=== PATIENT | male | born 1995 | race Caucasian/White ===

== ENCOUNTER 2025-08-08 21:39 | Observation (INO) ==
[2025-08-08] MEDS: ASPIRIN CHEW 324 MG PO STA (22:00)
[2025-08-08] MEDS: SODIUM CHLORIDE 0.9% 1,000 ML IV STA (22:01)
[2025-08-08 22:20] LABS: Hematocrit (blood only) 42.3 % (42.0-52.0); Hemoglobin 15.2 g/dl (14.0-18.0); Immature Granulocytes # (auto) 0.01 K/uL (0.01-0.20); Immature Granulocytes % (auto) 0.1 %; Mean Corpuscular Hemoglobin 30.8 pg (25.0-34.0); Mean Corpuscular Volume 85.6 fL (80.0-100.0); Platelet Count 237 K/uL (130-400); RDW Standard Deviation 38.4 fL (36.4-46.3); Red Blood Count 4.94 M/uL (4.70-6.10); White Blood Count 7.78 K/ul (4.8-10.8)
[2025-08-08 22:23] LABS: Appearance Urine Clear (Clear); Glucose Urine UA Negative (Negative)
[2025-08-08] MEDS: OPTIRAY 320 125ml IV ONE (22:34)
[2025-08-08 22:38] LABS: Anion Gap 10.0 (3-11); Blood Urea Nitrogen 16.0 mg/dl (6-23); Calcium 9.5 mg/dl (8.6-10.3); Carbon Dioxide 25.0 mmol/L (21-32); Chloride 103.0 mmol/L (98-107); Creatinine Clr Calc Pharmacy 126.4 ml/min; Glucose 90.0 mg/dl (70-99(Fasting)); Lipase 27.0 U/L (11-82); Magnesium 2.0 mg/dl (1.7-2.4); Potassium 3.4 mmol/L (3.5-5.1); Sodium 138.0 mmol/L (136-145)
[2025-08-08 22:49] LABS: Amphetamines+Metham, Urine Pos (Neg); INR 1.0 (0.9-1.1); MDMA (Ecstacy), Urine Neg (Neg); Marijuana, Urine Neg (Neg); Partial Thromboplastin Time 25 Seconds (21-31); Prothrombin Time 10.7 Seconds (9.0-12.0)
--- NOTE | 2025-08-08 22:52 | CT Scan Report ---
Exam(s): CTA CHEST IV Amt: 118ML OPTIRAY 320 EXAM: CT Angiography Chest With Intravenous Contrast CLINICAL HISTORY: Reason for exam: ro pe. TECHNIQUE: Axial computed tomographic angiography images of the chest with intravenous contrast. CTDI is 24.55 mGy and DLP is 878.81 mGy-cm. Automated exposure control was utilized for the study. A dose lowering technique was utilized adhering to the principles of ALARA. MIP reconstructed images were created and reviewed. COMPARISON: No relevant prior studies available. FINDINGS: Pulmonary arteries: No evidence of acute pulmonary embolism. Aorta: No aortic aneurysm or dissection. Lungs: No mass. No consolidation. Pleural space: No significant pleural effusion. No pneumothorax. Heart: No cardiomegaly. No significant pericardial effusion. Bones/joints: No acute fracture. No dislocation. Soft tissues: Unremarkable. Lymph nodes: No enlarged lymph nodes. IMPRESSION: No evidence of acute pulmonary embolism. Electronically signed by: Nacho Saravia M.D. 08/08/25 22:51 PM
[2025-08-08] MEDS: METOPROLOL TARTRATE 1 MG/ML VIAL IV PRN (23:46)
[2025-08-08] MEDS: SODIUM CHLORIDE 0.9% 1,000 ML IV ONE (23:48)
--- NOTE | 2025-08-09 00:01 | History & Physical Report ---
Date of Service August 09, 2025 Assessment & Plan (1) Atrial fibrillation with RVR: Plan Pt is a 30 yo male with nicotine dependence who presents to the hospital for palpitations, found to be in afib. #Atrial fibrillation with RVR - noted on EKG done in the ED - likely lifestyle induced; adderall use + constant nicotine pouch use + high caffeine use + alcohol use - initially on dilt per the ED and then given dose of lopressor with improvement in rates to low 100-110s - no associated chest pain or SOB, trop 3.0 on admission - denies any other drug use - will order echo to assess heart structures - started on dilt drip by ED, will discontinue this and do po dilt VTE: defer on admission, CHADSVASC score of 0 History of Present Illness Chief Complaint: Arrhythmia Primary Care Provider: NO PCP Pt is a 30 yo male with nicotine dependence who presents to the hospital for palpitations, found to be in afib. Pt here today with significant other and his mom. Pt states he was at the tailgate and started to feel palpitations and like his heart was racing. No chest pain or SOB. He did not feel syncopal. Feeling better now with improvement in his heart rates. 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 He states that he takes adderall at least once daily and zyn nicotine pouches he uses 2mg dosing and states he always has one in his mouth during waking hours. Today in particular, he states he woke up and had his adderall around 7am, then had a venti pike around 8am followed by a 12 ounce redbull at 1 pm and another 12 ounce redbull at 3pm. Additionally, he had 3 high noon alcoholic drinks throughout the day and then a shot of liquor shortly before coming to the hospital. His mom in the room is quite concerned and notes family hx of heart disease, most significantly his cousin on maternal side had a massive NJ in his 20s, MGM had NJ in her 40-50ss and maternal GGF had NJ at age 46. Allergies Allergy/AdvReac Type Severity Reaction Status Date / Time No Known Allergies Allergy Unverified 08/09/25 00:55 Home Medications Medication Instructions Recorded Confirmed Type dextroamphetamine-amphetamine 10 10 mg PO .EVERY AFTERNOON 08/09/25 08/09/25 History mg tablet (Adderall) dextroamphetamine-amphetamine ER 30 mg PO .QAM 08/09/25 08/09/25 History 30 mg 24hr capsule,extend release (Adderall XR) Past Med/Surg History Problem List (Updated 08/09/25 @ 02:06 by Giovany Young MD) Atrial fibrillation with RVR (Acute) Social History Smoking Status: Never smoker Review of Systems Review of Systems: Per HPI. Physical Exam Physical Exam: General: Alert and oriented, no acute distress, cooperative HEENT: Normocephalic, moist oral mucosa, Cardio: Regular rate and rhythm, no murmur, Resp: Lungs clear to auscultation b/l, no wheezes or rhonchi, GI: Soft and nontender, nondistended, bowel sounds active Skin: Warm, pink, dry, Results & Data Results & Data Vital Signs (Past 12 Hours) Vital Signs Temp Pulse Resp BP O2 Del Method 08/08/25 23:46 140 H 114/66 08/08/25 22:02 Room Air 08/08/25 21:52 149 H 08/08/25 21:50 36.9 C 149 H 19 154/85 H Room Air Supervising Physician Co-Signing Physician Notes Attending addendum: I have physically seen this patient, have supervised the medical residents activities, and agree with the H&P unless as otherwise noted. Assessment and Plan: The patient is a 30 with a past medical history including yo male nicotine dependence, and ADHD, who presents to the emergency department, with EKG and Troponin 3.0 Monitor indicating A-fib with RVR. Atrial fibrillation with RVR- The patient will be admitted to telemetry for serial cardiac enzymes, serial EKG's, cardiac rhythm monitoring and a 2-D echocardiogram with Dopplers. Potassium 3.4, optimized with oral and IV replacement as noted He was started on Cardizem drip by ED. Was also given normal saline IV 2 L bolus, aspirin 325 mg, and started on normal saline 125 mL/h Was then given Lopressor 5 mg IV with improvement in heart rate from 140s to 11 0s He denies any history of drug use. Urine drug screen is positive for amphetamine/methamphetamine, which is likely his Adderall he takes for ADHD Usage of Adderall, venti pike, and red bull as noted Resident Activity Tracking Resident Involvement: Resident Care Provided Care Provided: Adult Hospital Medicine
--- NOTE | 2025-08-09 00:05 | XRay Report ---
Exam(s): XR CXR 1 VIEW EXAM: XR Chest, 1 View CLINICAL HISTORY: Reason for exam: Chest pain, nonspecific. TECHNIQUE: Frontal view of the chest. COMPARISON: No relevant prior studies available. FINDINGS: Lungs: No consolidation. Pleural space: No significant pleural effusion. No pneumothorax. Heart: No cardiomegaly or pulmonary vascular congestion. Bones/joints: No acute fracture. No dislocation. IMPRESSION: No evidence of acute cardiopulmonary disease. Electronically signed by: Nacho Saravia M.D. 08/09/25 00:05 AM
[2025-08-09] MEDS: SODIUM CHLORIDE 0.9% 1,000 ML IV SCH (00:39)
[2025-08-09] MEDS: POTASSIUM CHLORIDE CRTAB 20 MEQ TABCR PO STA (00:40)
[2025-08-09] MEDS ORDERED: ONDANSETRON INJ 2 MG/ML 2 ML VIAL IV PRN (01:59)
[2025-08-09] MEDS ORDERED: MELATONIN 3 MG TAB PO PRN (01:59)
[2025-08-09] MEDS ORDERED: ACETAMINOPHEN 325 MG TAB PO PRN (01:59)
[2025-08-09] MEDS ORDERED: POLYETHYLENE (MIRALAX) 17 GM PACK PO PRN (01:59)
--- NOTE | 2025-08-09 02:03 | Emergency Department Note ---
History of Present Illness General Chief Complaint: Cardiac Assessment Stated Complaint: AFIB WITH RVR Time Seen by Provider: 08/08/25 21:43 History of Present Illness Provider Complaint: + palpitations and + atrial fibrillation Onset (ago): 1 hour(s) Duration: + Constant Severity: severe Context: + occurred during rest Arrhythmia history: no atrial fibrillation or no on anti-coagulants Associated symptoms: no chest pain, no shortness of breath, no syncope, no near- syncope, no nausea, no vomiting, no anxiety or no cough Treatments prior to arrival: + calcium channel lucio (EMS gave Cardizem 10 mg bolus, 20 mg bolus, 20 mg bolus as well as Ativan 2 mg IV push) HPI narrative: Patient reports she recently traveled here from [place]. 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 Patient does reporting drinking excessive amounts of caffeinated beverages including red bull, caffeinated alcoholic beverages, and took shots of whiskey prior to arrival. Home Medications Medication Instructions Recorded Confirmed Type dextroamphetamine-amphetamine 10 10 mg PO .EVERY AFTERNOON 08/09/25 08/09/25 History mg tablet (Adderall) dextroamphetamine-amphetamine ER 30 mg PO .QAM 08/09/25 08/09/25 History 30 mg 24hr capsule,extend release (Adderall XR) Allergies Allergy/AdvReac Type Severity Reaction Status Date / Time No Known Allergies Allergy Unverified 08/09/25 00:55 Past Med/Surg History Problem List (Updated 08/09/25 @ 02:06 by Giovany Young MD) Atrial fibrillation with RVR (Acute) Social History Smoking Status: Never smoker Physical Exam 2 Vital Signs: Vital Signs - 24 hr 08/08/25 21:50 08/08/25 21:52 08/08/25 22:02 Temperature 36.9 C Temperature Source Oral Pulse Rate 149 H 149 H Pulse Rate [Right Finger] Pulse Rhythm [Righ t Finger] Pulse Strength [Ri ght Finger] Respiratory Rate 19 Respiratory Effort / Characteristics Respiratory Depth Respiratory Patter n Blood Pressure 154/85 H Blood Pressure [Le ft Arm] Blood Pressure Mercy n 108 Blood Pressure Mercy n [Left Arm] Blood Pressure Pos ition [Left Arm] Pulse Oximetry Oxygen Delivery Me thod Room Air Room Air Sepsis Recent Feve r Within 48 Hours No Sepsis New/Unexpla ined Change in Men genoveva Status No Sepsis Action Take n by Nursing No Action Required 08/08/25 23:37 08/08/25 23:37 08/08/25 23:46 Temperature Temperature Source Pulse Rate 140 H Pulse Rate [Right Finger] 107 H Pulse Rhythm [Righ t Finger] Regular Pulse Strength [Ri ght Finger] Normal Respiratory Rate 22 Respiratory Effort / Characteristics Non-Labored Respiratory Depth Normal Respiratory Patter n Regular Blood Pressure 114/66 Blood Pressure [Le ft Arm] 116/76 Blood Pressure Mercy n Blood Pressure Mercy n [Left Arm] 89 Blood Pressure Pos ition [Left Arm] Lying Pulse Oximetry 96 Oxygen Delivery Me thod Room Air Room Air Sepsis Recent Feve r Within 48 Hours Sepsis New/Unexpla ined Change in Men genoveva Status Sepsis Action Take n by Nursing 08/09/25 00:35 Temperature Temperature Source Pulse Rate 104 H Pulse Rate [Right Finger] Pulse Rhythm [Righ t Finger] Pulse Strength [Ri ght Finger] Respiratory Rate Respiratory Effort / Characteristics Respiratory Depth Respiratory Patter n Blood Pressure 107/58 L Blood Pressure [Le ft Arm] Blood Pressure Mercy n Blood Pressure Mercy n [Left Arm] Blood Pressure Pos ition [Left Arm] Pulse Oximetry Oxygen Delivery Me thod Sepsis Recent Feve r Within 48 Hours Sepsis New/Unexpla ined Change in Men genoveva Status Sepsis Action Take n by Nursing Physical Exam: Physical Exam GENERAL: oriented to person, place, and time. appears well-developed and well- nourished. HENT: Exam performed. - Head: Normocephalic and atraumatic. EYES: Conjunctivae and EOM are normal. Right eye exhibits no discharge. Left eye exhibits no discharge. No scleral icterus. NECK: Normal range of motion. Neck supple. No JVD present. CV: Tachycardic rate, irregular rhythm, normal heart sounds and intact distal pulses. There is no peripheral edema. Palpable radial pulses bue. PULM/CHEST: Effort normal and breath sounds normal. No respiratory distress. No stridor. no wheezes. no rales. ABD: The abdomen is soft. There is no tenderness. NEURO: Motor and sensation grossly intact. SKIN: Skin is warm and dry. He is not diaphoretic. PSYCH: normal mood and affect. Behavior is normal. Judgment and thought content normal. Course Course 2142: The patient was evaluated in room C3. A complete history and physical exam was performed Cardiac monitoring: An order was placed for continuous cardiac monitoring. The monitor shows a rate of 130-150 with atrial fibrilation rhythm interpreted by me Patient will be placed on Cardizem drip. Will check urine drug screen before initiating treatment with beta-blockers to make sure the patient is positive for any illicit substances specifically cocaine. 2350: Patient remained tachycardic despite being on maximum Cardizem drip. Patient's labs and imaging were unremarkable including negative UDS, CTA chest, and high-sensitivity troponin. Patient not reporting a chest pain or difficulty breathing. Patient was given metoprolol 5 mg IV push which improved the patient's ventricular rate. Patient will be admitted for A-fib RVR. Patient has a [id number] score of 0. Aspirin given to the patient. JOHNNY?DS?-VASc Score for Atrial Fibrillation Stroke Risk from [email or web address] on 08/08/2025 All calculations should be rechecked by clinician prior to use RESULT SUMMARY: 0 points Stroke risk was 0.2% per year in >90,000 patients (the [place] Atrial Fibrillation Cohort Study) and 0.3% risk of stroke/TIA/systemic embolism. INPUTS: Age > 0 = <65 Sex > 0 = Male CHF history > 0 = No Hypertension history > 0 = No Stroke/TIA/thromboembolism history > 0 = No Vascular disease history (prior [place], peripheral artery disease, or aortic plaque) > 0 = No Diabetes history > 0 = No Administered Medications Diltiazem HCl 125 mg/ Dextrose 125 mls @ 10 mls/hr IV .[id number] [facility]; Protocol Stop: 09/07/25 21:59 Last Titration: 08/09/25 00:36 Dose: 10 mg/hr, 10 mls/hr Documented By: PAG Co-signed By: LYRIC Titration: 08/08/25 23:24 Dose: 15 mg/hr, 15 mls/hr Documented By: ADI Co-signed By: SOLOMON Titration: 08/08/25 23:08 Dose: 10 mg/hr, 10 mls/hr Documented By: NAYAN Co-signed By: KAELYN Titration: 08/08/25 22:48 Dose: 7.5 mg/hr, 7.5 mls/hr Documented By: NAYAN Co-signed By: KAELYN Admin: 08/08/25 22:09 Dose: 5 mg/hr, 5 mls/hr Documented By: NAYAN Co-signed By: WADE Sodium Chloride (Nss) 1,000 mls @ 125 mls/hr IV .Q8H THAI Stop: 08/11/25 23:44 Last Admin: 08/09/25 00:39 Dose: 125 mls/hr Documented By: BEV Metoprolol Tartrate (Metoprolol Tartrate 1 Mg/Ml Vial) 5 mg IV Q5M PRN PRN Reason: Tachycardia Stop: 09/07/25 23:35 Last Admin: 08/08/25 23:46 Dose: 5 mg Documented By: BEV Discontinued Medications Aspirin (Aspirin Chew 324 Mg) 324 mg PO NOW STA Stop: 08/08/25 21:51 Last Admin: 08/08/25 22:00 Dose: 324 mg Documented By: KAELYN Sodium Chloride (Nss) 1,000 mls @ 999 mls/hr IV .Q1H1M STA Stop: 08/08/25 22:50 Last Infusion: 08/08/25 23:25 Dose: Infused Documented By: Admin: 08/08/25 22:11 Dose: 999 mls/hr Documented By: Infusion: 08/08/25 22:11 Dose: Infused Documented By: Admin: 08/08/25 22:01 Dose: 999 mls/hr Documented By: KAELYN Sodium Chloride (Nss) 1,000 mls @ 999 mls/hr IV .Q1H1M ONE Stop: 08/08/25 22:50 Last Admin: 08/08/25 23:48 Dose: Not Given Documented By: BEV Ioversol (Optiray 320 125ml) 118 ml IV ONCE ONE Stop: 08/08/25 22:35 Last Admin: 08/08/25 22:34 Dose: 118 ml Documented By: YANICK Potassium Chloride (Potassium Chloride Crtab 20 Meq Tabcr) 60 meq PO NOW STA Stop: 08/08/25 23:37 Last Admin: 08/09/25 00:40 Dose: 60 meq Documented By: BEV Medical Decision Making Laboratory Data Attestation: I reviewed the patient's lab results. 08/08/25 22:01 08/08/25 22:01 Lab Results 08/08/25 08/08/25 Range/Units 22:01 22:11 WBC 7.78 (4.8-10.8) K/ul RBC 4.94 (4.70-6.10) M/uL Hgb 15.2 (14.0-18.0) g/dl POC Hgb 15.0 (14.0-18.0) g/dl Hct 42.3 (42.0-52.0) % POC Hct 44 (42-52) % MCV 85.6 (80.0-100.0) fL MCH 30.8 (25.0-34.0) pg MCHC 35.9 (32.0-36.0) g/dL RDW Std Deviation 38.4 (36.4-46.3) fL RDW Coeff of Susy 12.4 (11.5-14.5) % Plt Count 237 (130-400) K/uL MPV 10.1 (9.4-12.4) fL Immature Gran % (Auto) 0.1 % Neut % (Auto) 63.9 % Lymph % (Auto) 26.5 % J[place]uld % (Auto) 6.4 % Eos % (Auto) 2.1 % Baso % (Auto) 1.0 % Neut # (Auto) 4.97 (1.40-6.50) K/uL Lymph # (Auto) 2.06 (1.20-3.40) K/uL J[place] # (Auto) 0.50 (0.11-0.59) K/uL Eos # (Auto) 0.16 (0.00-0.50) K/uL Baso # (Auto) 0.08 (0.00-0.20) K/uL Immature Gran # (Auto) 0.01 (0.01-0.20) K/uL PT 10.7 (9.0-12.0) Seconds INR 1.0 (0.9-1.1) APTT 25 (21-31) Seconds PTT Ratio 0.9 POC Sodium 141 (135-144) mmol/L Sodium 138 (136-145) mmol/L POC Potassium 3.4 (3.3-5.0) mmol/L Potassium 3.4 L (3.5-5.1) mmol/L POC Chloride 105 (101-112) mmol/L Chloride 103 (98-107) mmol/L Carbon Dioxide 25 (21-32) mmol/L POC Total CO2 24 (24-31) mmol/L Anion Gap 10 (3-11) POC Anion Gap 16.0 (16-25) mmol/L POC BUN 17 (7-18) mg/dl BUN 16 (6-23) mg/dl Creatinine 1.04 (0.6-1.4) mg/dl POC Creatinine 1.1 (0.6-1.3) mg/dl Est Cr Clr Drug Dosing 126.4 ml/min eGFR 98.45 BUN/Creatinine Ratio 15.4 (10-20) Glucose 90 (70-99(Fasting)) mg/dl POC Glucose (other) 93 (70-99) mg/dl Calcium 9.5 (8.6-10.3) mg/dl POC Ioniz Calcium Reinier 1.19 (1.12-1.32) mmol/l Magnesium 2.0 (1.7-2.4) mg/dl Troponin I High Sens 3.0 (0-20) pg/ml Lipase 27 (11-82) U/L Urine Color Yellow Urine Appearance Clear (Clear) Urine pH 6.0 (4.5-7.5) Ur Specific [place] 1.013 (1.000-1.030) Urine Protein Negative (Negative) Urine Glucose (UA) Negative (Negative) Urine Ketones Negative (Negative) Urine Blood Negative (Negative) Urine Nitrite Negative (Negative) Urine Bilirubin Negative (Negative) Urine Urobilinogen Negative (Negative) Ur Leukocyte Esterase Negative (Negative) Urine Comment Urine Opiates Screen Neg (Neg) Ur Methadone, Qual Neg (Neg) Urine Fentanyl Screen Neg (Neg) Urine Barbiturates Neg (Neg) Ur Phencyclidine (PCP) Neg (Neg) U Amphetamin/Meth Scrn Pos H (Neg) MDMA (Ecstasy) Screen Neg (Neg) U Benzodiazepines Scrn Neg (Neg) Ur Cocaine Metabolite Neg (Neg) U Marijuana (THC) Screen Neg (Neg) Imaging Data Attestation: I personally reviewed and interpreted this imaging study as follows: My Impression: Chest x-ray negative. Airway clear. No pneumothorax. No consolidation. No cardiomegaly or cephalization.. No free air under the diaphragm. No fractures of the skeletal structures. Radiologist's Impression: Chest X-Ray 08/08/25 21:50 Exam(s): XR CXR 1 VIEW EXAM: XR Chest, 1 View CLINICAL HISTORY: Reason for exam: Chest pain, nonspecific. TECHNIQUE: Frontal view of the chest. COMPARISON: No relevant prior studies available. FINDINGS: Lungs: No consolidation. Pleural space: No significant pleural effusion. No pneumothorax. Heart: No cardiomegaly or pulmonary vascular congestion. Bones/joints: No acute fracture. No dislocation. IMPRESSION: No evidence of acute cardiopulmonary disease. Electronically signed by: Nacho Saravia M.D. 08/09/25 00:05 AM Chest CTA 08/08/25 22:00 Exam(s): CTA CHEST IV Amt: 118ML OPTIRAY 320 EXAM: CT Angiography Chest With Intravenous Contrast CLINICAL HISTORY: Reason for exam: ro pe. TECHNIQUE: Axial computed tomographic angiography images of the chest with intravenous contrast. CTDI is 24.55 mGy and DLP is 878.81 mGy-cm. Automated exposure control was utilized for the study. A dose lowering technique was utilized adhering to the principles of ALARA. MIP reconstructed images were created and reviewed. COMPARISON: No relevant prior studies available. FINDINGS: Pulmonary arteries: No evidence of acute pulmonary embolism. Aorta: No aortic aneurysm or dissection. Lungs: No mass. No consolidation. Pleural space: No significant pleural effusion. No pneumothorax. Heart: No cardiomegaly. No significant pericardial effusion. Bones/joints: No acute fracture. No dislocation. Soft tissues: Unremarkable. Lymph nodes: No enlarged lymph nodes. IMPRESSION: No evidence of acute pulmonary embolism. Electronically signed by: Nacho Saravia M.D. 08/08/25 22:51 PM ECG Data Attestation: I personally reviewed and interpreted this ECG as follows: Additional Comments: EKG #1 at 2147: Atrial fibrillation with a rate of 134. QRS [address] or ST depression EKG #2 at 2346 on Cardizem drip status post metoprolol 5 mg IV push: Atrial fibrillation with a rate of 110. QRS and QTc intervals within normal limits. No ST elevation or ST depression MDM Narrative 2143: The patient was evaluated in room C3. A complete history and physical exam was performed Cardiac monitoring: An order was placed for continuous cardiac monitoring. The monitor shows a rate of 130-150 with atrial fibrilation rhythm interpreted by me Patient will be placed on Cardizem drip. Will check urine drug screen before initiating treatment with beta-blockers to make sure the patient is positive for any illicit substances specifically cocaine. 2350: Patient remained tachycardic despite being on maximum Cardizem drip. Patient's labs and imaging were unremarkable including negative UDS, CTA chest, and high-sensitivity troponin. Patient not reporting a chest pain or difficulty breathing. Patient was given metoprolol 5 mg IV push which improved the patient's ventricular rate. Patient will be admitted for A-fib RVR. Patient has a [id number] score of 0. Aspirin given to the patient. JOHNNY?DS?-VASc Score for Atrial Fibrillation Stroke Risk from [email or web address] on 08/08/2025 All calculations should be rechecked by clinician prior to use RESULT SUMMARY: 0 points Stroke risk was 0.2% per year in >90,000 patients (the [place] Atrial Fibrillation Cohort Study) and 0.3% risk of stroke/TIA/systemic embolism. INPUTS: Age > 0 = <65 Sex > 0 = Male CHF history > 0 = No Hypertension history > 0 = No Stroke/TIA/thromboembolism history > 0 = No Vascular disease history (prior [place], peripheral artery disease, or aortic plaque) > 0 = No Diabetes history > 0 = No Impression & Plan Atrial fibrillation with RVR Critical Care Time Critical Care Time: Yes Discharge Plan Visit Data Chief Complaint: Cardiac Assessment Stated Complaint: AFIB WITH RVR ED Provider: Giovany Young Discharge Problem: Atrial fibrillation with RVR Patient Disposition: Admitted As Inpatient Condition: Serious Discharge Instructions Interventions: ED Discharge Assessment Last Done: 08/09/25 01:59
[2025-08-09 03:17] LABS: Alanine Aminotransferase 12.0 U/L (7-52); Albumin Globulin Ratio 1.5 (0.9-2); Albumin Level 3.7 gm/dl (3.4-5.0); Alkaline Phosphatase 40.0 U/L (34-104); Anion Gap 4.0 (3-11); Bilirubin,Total 0.3 mg/dl (0.2-1.0); Blood Urea Nitrogen 17.0 mg/dl (6-23); Calcium 8.2 mg/dl (8.6-10.3); Carbon Dioxide 25.0 mmol/L (21-32); Chloride 110.0 mmol/L (98-107); Creatinine Clr Calc Pharmacy 170.7 ml/min; Globulin 2.4 gm/dl (2.5-4.0); Glucose 94.0 mg/dl (70-99(Fasting)); Magnesium 1.9 mg/dl (1.7-2.4); Potassium 4.2 mmol/L (3.5-5.1); Sodium 139.0 mmol/L (136-145); Total Protein 6.1 gm/dl (6.0-8.3)
[2025-08-09 03:18] LABS: Hematocrit (blood only) 33.7 % (42.0-52.0); Hemoglobin 11.7 g/dl (14.0-18.0); Immature Granulocytes # (auto) 0.04 K/uL (0.01-0.20); Immature Granulocytes % (auto) 0.5 %; Mean Corpuscular Hemoglobin 29.9 pg (25.0-34.0); Mean Corpuscular Volume 86.2 fL (80.0-100.0); Platelet Count 185 K/uL (130-400); RDW Standard Deviation 38.8 fL (36.4-46.3); Red Blood Count 3.91 M/uL (4.70-6.10); White Blood Count 8.02 K/ul (4.8-10.8)
[2025-08-09] MEDS: LACTATED RINGER'S 1,000 ML IV SCH (03:23)
--- NOTE | 2025-08-09 05:51 | Billing Data ---
Date of Service August 09, 2025 Coding Level of Care Code 98774 INT INP/OBS CARE
[2025-08-09] MEDS: STAT IV Infusion **Titration per Protocol STA (06:37)
--- NOTE | 2025-08-09 06:38 | Electrocardiogram Report ---
Test Reason : Blood Pressure : */* mmHG Vent. Rate : 134 BPM Atrial Rate : * BPM P-R Int : * ms QRS Dur : 98 ms QT Int : 288 ms P-R-T Axes : * 87 -50 degrees QTcB Int : 430 ms Atrial fibrillation with rapid ventricular response Abnormal ECG No previous ECGs available Confirmed by Frankie Caldera ([id number]) on 08/09/2025 6:37:31 AM Referred By: REFERRED SELF Confirmed By: Frankie Caldera
--- NOTE | 2025-08-09 10:11 | Discharge Summary ---
Discharge Summary Date of Service August 09, 2025 Principal Dx & Hospital Course #1 = Principal Diagnosis (1) Atrial fibrillation with RVR: Who is seen for an episode of A-fib, likely provoked by combination of Adderall, nicotine, alcohol, and caffeine. He received metoprolol and diltiazem along with potassium repletion overnight. He converted to normal sinus rhythm. A transthoracic echocardiogram was completed however results of this were pending cardiology review at time of discharge. His high sensitivity troponin was not elevated x 2. There is no suggestion of ischemic disease. As his episode was likely provoked from multiple substances and a very high nicotine/caffeine chronic use with superimposed alcohol use during a sports game. Gradual tapering of his nicotine and caffeine was recommended, he will follow-up with his PCP for pharmacologic assisted management of nicotine dependence. [id number] was 0, his episode was provoked, and he had converted at time of discharge. Anticoagulation was not recommended. A-fib monitoring via a Apple watch was discussed extensively to which she is agreeable and will present for reevaluation should his A-fib recur, if he is able to make lifestyle management as above suspect this is unlikely in the near future. He felt clinically well and was hemodynamically stable at time of discharge. Plan Family Doc: Dr. Luis Miguel Hodge, [place] Admission HPI Per Admitting Provider Pt is a 30 yo male with nicotine dependence who presents to the hospital for p alpitations, found to be in afib. Pt here today with significant other and his mom. Pt states he was at the tailgate and started to feel palpitations and like his heart was racing. No chest pain or SOB. He did not feel syncopal. Feeling better now with improvement in his heart rates. 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 He states that he takes adderall at least once daily and zyn nicotine pouches he uses 2mg dosing and states he always has one in his mouth during waking hours. Today in particular, he states he woke up and had his adderall around 7am, then had a venti pike around 8am followed by a 12 ounce redbull at 1 pm and another 12 ounce redbull at 3pm. Additionally, he had 3 high noon alcoholic drinks throughout the day and then a shot of liquor shortly before coming to the hospital. His mom in the room is quite concerned and notes family hx of heart disease, most significantly his cousin on maternal side had a massive WV in his 20s, MGM had WV in her 40-50ss and maternal GGF had WV at age 46. Discharge Exam General: A&Ox3. NAD. Cooperative. HEENT: Atraumatic, normocephalic. Vision and hearing grossly intact Pulm: Symmetrical chest rise. No increased work of breathing. No respiratory distress. Cardiac: RRR Discharge Plan Discharge Items Patient Disposition: Home - Self-Care Reason For Visit: ARRHYTHMIA Discharge Diagnosis: Provoked atrial fibrillation Condition on Discharge: Good Activity: Resume your previous activity Non-emergency contact: Primary Care Provider Call non-emergency contact if: you have any medication questions, your symptoms worsen, your pain is not controlled and your pain is worsening Follow-up/Referrals: PCP,NO [Primary Care Provider] - Diet: Regular Addtl Attending Provider Instructions: You are seen in the hospital for an abnormal heart rhythm called atrial fibrillation. You received several doses of metoprolol, a heart rate lowering medicine, and IV doses of a medicine called diltiazem, another heart rate lowering medicine, during admission. The morning of 08/09/2025 you switched back to a normal heart rhythm. You had an ultrasound of your heart performed to check function, this was not available at time of discharge and was pending a final read by the fusing machine feeder. You should receive a call if this is abnormal however please ensure with your PCP that the final results of this were forwarded and reviewed at a follow-up appointment. Please call your primary care physician for follow-up appointment within the next 2 to 3 weeks Atrial fibrillation can cause an increased risk of strokes. Your [id number] score was 0, and anticoagulation to prevent strokes was not recommended at time of admission. Additionally A-fib occurring in younger patients is usually transient and provoked rather than truly persistent/paroxysmal. It is highly likely that your atrial fibrillation was provoked by combination of alcohol, nicotine, caffeine, and Adderall. Please avoid alcohol and reduce nicotine and caffeine as below. It is important to reduce nicotine dependence, as this can also provoke A-fib in the future. While some people can go cold turkey, the high amount of regular nicotine use places you at high risk of cravings. It is recommended that you decrease your nicotine use by around 50% and slowly continue to decrease by consistent percentage weekly. If you have difficulty tapering/illuminating nicotine please discuss pharmacologic assisted nicotine dependence management with your primary care doctor. It is also recommended to decrease/avoid caffeine in the near future. High use of caffeine regularly followed by abrupt cessation can lead to a caffeine hea dache, it is recommended to decrease as much as possible and continue tapering use again as noted above. Caffeine withdrawal almost always lasts less than 1 week when it does occur. You are high sensitive troponin, heart markers, were normal during admission. You did not show any signs of cardiac ischemia/heart attack. As your atrial fibrillation was likely provoked, it was not recommended to start a suppressive medication at this time as these medications also have side effects which may limit your active lifestyle. On shared decision making it was recommended that you obtain a Apple Watch or Fitbit which is capable of detecting heart rate/A-fib (please read product information before purchasing) as these can be helpful in detecting recurrent A-fib. While it is unlikely her A-fib recurs if you make lifestyle changes as above, for some people it can recur and these devices can help given early warning of this. If your A-fib does recur you should be seen by your family doctor, or if you have a rapid heart rate again in the ER, and have further discussions regarding long-term management or suppression of A-fib at that time. If you develop any new or worsening symptoms including fever, chills, sweats, chest pain, chest pressure, difficulty breathing, uncontrolled nausea/vomiting, rash, wheezing, passing out or nearly passing out, bleeding, black/bloody bowel movements, or other new or concerning symptoms please call your primary care physician, or call 911 for re-evaluation in the emergency department if you are very concerned. Pending Studies at Discharge: No Stand-Alone Forms: My [facility] [email or web address], Smoking Cessation Medications and DC Order Prescriptions: Continued dextroamphetamine-amphetamine [Adderall] 10 mg Tablet 10 mg PO .EVERY AFTERNOON dextroamphetamine-amphetamine [Adderall XR] 30 mg Capsule,Extended Release 24hr 30 mg PO .[facility] Admission Data Admit Date/Time: 08/09/25 00:39 Attending Provider: Grant Kiran Admit Provider: Kasandra Adkins Primary Care Provider: PCP,NO Other Providers: Grant Kiran Hospital Stay Data Consultations 08/08/25 23:31 ED Decision to Admit Stat Diagnostic Imagining Performed 08/08/25 22:00 CT angio chest PE protocol Stat Discharge Instructions Given to Patient (Per Discharging Provider) You are seen in the hospital for an abnormal heart rhythm called atrial fibrillation. You received several doses of metoprolol, a heart rate lowering medicine, and IV doses of a medicine called diltiazem, another heart rate lowering medicine, during admission. The morning of 08/09/2025 you switched back to a normal heart rhythm. You had an ultrasound of your heart performed to check function, this was not available at time of discharge and was pending a final read by the fusing machine feeder. You should receive a call if this is abnormal however please ensure with your PCP that the final results of this were forwarded and reviewed at a follow-up appointment. Please call your primary care physician for follow-up appointment within the next 2 to 3 weeks Atrial fibrillation can cause an increased risk of strokes. Your [id number] score was 0, and anticoagulation to prevent strokes was not recommended at time of admission. Additionally A-fib occurring in younger patients is usually transient and provoked rather than truly persistent/paroxysmal. It is highly likely that your atrial fibrillation was provoked by combination of alcohol, nicotine, caffeine, and Adderall. Please avoid alcohol and reduce nicotine and caffeine as below. It is important to reduce nicotine dependence, as this can also provoke A-fib in the future. While some people can go cold turkey, the high amount of regular nicotine use places you at high risk of cravings. It is recommended that you decrease your nicotine use by around 50% and slowly continue to decrease by consistent percentage weekly. If you have difficulty tapering/illuminating nicotine please discuss pharmacologic assisted nicotine dependence management with your primary care doctor. It is also recommended to decrease/avoid caffeine in the near future. High use of caffeine regularly followed by abrupt cessation can lead to a caffeine headache, it is recommended to decrease as much as possible and continue tapering use again as noted above. Caffeine withdrawal almost always lasts less than 1 week when it does occur. You are high sensitive troponin, heart markers, were normal during admission. You did not show any signs of cardiac ischemia/heart attack. As your atrial fibrillation was likely provoked, it was not recommended to start a suppressive medication at this time as these medications also have side effects which may limit your active lifestyle. On shared decision making it was recommended that you obtain a Apple Watch or Fitbit which is capable of detecting heart rate/A-fib (please read product information before purchasing) as these can be helpful in detecting recurrent A-fib. While it is unlikely her A-fib recurs if you make lifestyle changes as above, for some people it can recur and these devices can help given early warning of this. If your A-fib does recur you should be seen by your family doctor, or if you have a rapid heart rate again in the ER, and have further discussions regarding long-term management or suppression of A-fib at that time. If you develop any new or worsening symptoms including fever, chills, sweats, chest pain, chest pressure, difficulty breathing, uncontrolled nausea/vomiting, rash, wheezing, passing out or nearly passing out, bleeding, black/bloody bowel movements, or other new or concerning symptoms please call your primary care physician, or call 911 for re-evaluation in the emergency department if you are very concerned. Total Time Total Time Spent Total Time Spent (In Minutes): Time spend day of discharge 50 minutes including direct patient care, documentation, review of labs and images, and coordination of care. The vast majority of time was spent on counseling regarding provoked A-fib. Coding Level of Care Code 36919 INP/OBS DISCH >30 MIN Diagnoses Atrial fibrillation with RVR I48.91
--- NOTE | 2025-08-09 13:10 | XCELERA ---
[id number]
--- NOTE | 2025-08-09 20:42 | Electrocardiogram Report ---
Test Reason : Blood Pressure : */* mmHG Vent. Rate : 110 BPM Atrial Rate : * BPM P-R Int : * ms QRS Dur : 96 ms QT Int : 334 ms P-R-T Axes : * 89 79 degrees QTcB Int : 452 ms Atrial fibrillation with rapid ventricular response Abnormal ECG When compared with ECG of 08-Aug-2025 21:47, ST no longer depressed in Inferolateral leads T wave inversion no longer evident in Inferior leads Confirmed by Frankie Caldera ([id number]) on 08/09/2025 8:42:34 PM Referred By: REFERRED SELF Confirmed By: Frankie Caldera
--- NOTE | 2025-08-09 20:43 | Electrocardiogram Report ---
Test Reason : Blood Pressure : */* mmHG Vent. Rate : 74 BPM Atrial Rate : 74 BPM P-R Int : 188 ms QRS Dur : 98 ms QT Int : 376 ms P-R-T Axes : 61 84 79 degrees QTcB Int : 417 ms Normal sinus rhythm Normal ECG When compared with ECG of 08-Aug-2025 23:46, Sinus rhythm has replaced Atrial fibrillation Vent. rate has decreased by 36 bpm Confirmed by Frankie Caldera ([id number]) on 08/09/2025 8:42:54 PM Referred By: REFERRED SELF Confirmed By: Frankie Caldera
== END 2025-08-09 11:21 | disposition home or self-care (01) ==
LOC: SUATTDRO → EDINP 21:39 → ED 21:39 → EDINP 08-09 02:00